=== PATIENT | female | born 1960 | race Caucasian/White ===

== ENCOUNTER → 2016-09-22 | Outpatient (CLI) | payer BC ==
[~2016-09-22] MED LIST: ATIVAN0.5 MG PO; B COMPLEX1 TA2 PO; CALCIUM500 MG PO; CORDROL20 MG PO; DURAGESIC12.5 MCG/H TD; FIBER CHOICE1 CTB PO; FLEXERIL10 MG PO; HYDROCODONE BIT1 T11 PO; METAXALONE800 M1 PO; MOTRIN800 MG PO; PERCOCET 325 MG1 TA2 PO; PERCOCET 325 MG1 TA7 PO; PHENERGAN25 M1 PO; PREDNISONE20 MG PO; PRILOSEC40 MG PO; RITE AID KRILL500 MG PO; TRAMADOL HCL50 MG PO; ZANTAC 300300 MG PO; ZANTAC150 MG PO; ZYRTEC10 MG PO
== END | disposition home or self-care (01) ==
LOC: LAB 19:15
PROVIDERS: Family Medicine
DX: Z91.018 Allergy to other foods (principal)

== ENCOUNTER 2018-02-02 17:48 | Emergency (ER) | payer BC ==
[~2018-02-02] VITALS: Ht 170.1 cm; Wt 64.9 kg
[2018-02-02 18:19] LABS: BASO % 0.3 % (0.0-1.0); EOS # 0.1 10*3/uL (0.0-0.4); EOS % 0.7 % (1.0-4.0); HEMOGLOBIN 12.5 g/dl (12.0-16.0); LYMPH # 1.7 10*3/uL (1.3-4.4); MEAN CELL VOLUME 89.4 fl (81.0-99.0); MEAN CORPUSCULAR HGB 30.2 pg (27.0-31.0); MEAN CORPUSCULAR HGB CONC 33.8 g/dl (33.0-37.0); MEAN PLATELET VOLUME 10.3 fl (9.6-12.3); MONO # 0.6 10*3/uL (0.1-1.0); NEUT # 10.3 10*3/uL (2.3-7.9); NEUT % 80.8 % (47.0-73.0); PLATELET COUNT AUTOMATED 220 10*3/uL (130-400); RED BLOOD COUNT 4.14 10*6/uL (4.10-5.10); WHITE BLOOD COUNT 12.7 10*3/uL (4.8-10.8)
[2018-02-02 18:35] LABS: ALBUMIN 4.3 gm/dl (3.1-4.5); ALKALINE PHOSPHATASE 69 U/L (45-117); BUN 8 mg/dl (7-24); CHLORIDE 103 mmol/L (98-107); CREATININE 0.69 mg/dL (0.55-1.02); POTASSIUM 3.5 mmol/L (3.5-5.1); SGPT/ALT 22 U/L (12-78); SODIUM 139 mmol/L (136-145); TOTAL PROTEIN 7.6 gm/dL (6.4-8.2)
[2018-02-02 18:39] LABS: SGOT/AST 19 IU/L (3-35)
== END 2018-02-02 19:36 | disposition home or self-care (01) ==
LOC: ED 17:48
PROVIDERS: Nurse Practitioner Family
DX: R60.0 Localized edema (principal); T50.Z95A Adverse effect of other vaccines and biological substances, initial encounter; M79.601 Pain in right arm; M79.89 Other specified soft tissue disorders; Z79.899 Other long term (current) drug therapy; Z79.4 Long term (current) use of insulin; Z98.890 Other specified postprocedural states; Y92.9 Unspecified place or not applicable

== ENCOUNTER → 2018-02-22 | Outpatient (CLI) | payer BC | END | disposition home or self-care (01) | LOC: RAD 16:04 | DX: M50.322 Other cervical disc degeneration at C5-C6 level (principal); M54.5 Low back pain ==

== ENCOUNTER → 2019-05-14 | Outpatient (CLI) | payer BC | END | disposition home or self-care (01) | LOC: RAD 16:42 | DX: J45.20 Mild intermittent asthma, uncomplicated (principal); R09.89 Other specified symptoms and signs involving the circulatory and respiratory systems ==

== ENCOUNTER → 2019-12-17 | Outpatient (CLI) | payer BC | END | disposition home or self-care (01) | LOC: COVID19 10:11 | DX: Z20.828 Contact with and (suspected) exposure to other viral communicable diseases (principal) ==